=== PATIENT | female | born 1955 | race African-American/Black ===

== ENCOUNTER → 2024-08-12 | Day surgery (SDC) | payer OTHER | LOC: JRADUS-SUR 10:18 | PROVIDERS: ATTEND Family Medicine | PROC: 0HBU3ZX Excision of Left Breast, Percutaneous Approach, Diagnostic (ICD-10-PCS; principal; 2024-08-12) | DX: D18.09 Hemangioma of other sites (principal); N64.89 Other specified disorders of breast; N63.21 Unspecified lump in the left breast, upper outer quadrant | CPT/HCPCS: 19083; 76942-TC; 77065-TC; 77066-TC; 87899; 88305-TC; A4648; G0279-TC ==

== ENCOUNTER 2024-09-01 06:46 | Day surgery (SDC) | payer OTHER ==
[2024-08-20 15:02] VITALS: BMI 49.0
[2024-09-01 11:53] VITALS: RESP 18; TEMP 98
[2024-09-01 12:23] VITALS: BP 102/54; PULSE 75
== END 2024-09-01 12:30 | disposition home or self-care (01) ==
LOC: JASU-ENDO 06:46
PROVIDERS: ATTEND Internal Medicine Gastroenterology
PROC: 0DBH8ZX Excision of Cecum, Via Natural or Artificial Opening Endoscopic, Diagnostic (ICD-10-PCS; principal; 2024-09-01 11:00)
DX: Z12.11 Encounter for screening for malignant neoplasm of colon (principal); D12.0 Benign neoplasm of cecum; K63.89 Other specified diseases of intestine; K64.8 Other hemorrhoids
CPT/HCPCS: 88304-TC; 88305-TC

== ENCOUNTER 2024-09-23 10:44 | Day surgery (SDC) | payer OTHER ==
[2024-09-21 15:30] VITALS: BMI 43.7
[2024-09-23] MEDS ORDERED: LIDOCAINE 1%/EPI 1:100000 (20 ML MULTI DOSE VIAL) ONE (11:25)
[2024-09-23] MEDS ORDERED: BUPIVACAINE HCL/PF 2.5 MG/ML - 30 ML VIAL IJ ONE (11:26)
[2024-09-23] MEDS ORDERED: PROPOFOL 20 ML ONE ×2 (12:16→12:48)
[2024-09-23] MEDS ORDERED: SUCCINYLCHOLINE CHLORIDE 200 MG/10 ML SYRINGE ONE (12:16)
[2024-09-23] MEDS ORDERED: MIDAZOLAM HCL 2 MG/2 ML SINGLE DOSE VIAL ONE ×2 (12:17)
[2024-09-23] MEDS ORDERED: ACETAMINOPHEN INJECTION 100 ML ONE (13:07)
[2024-09-23] MEDS ORDERED: PROMETHAZINE HCL 25 MG/1 ML VIAL IVPB PRN (13:46)
[2024-09-23] MEDS ORDERED: oxyCODONE HCL 5 MG TABLET PO PRN ×2 (13:46)
[2024-09-23] MEDS ORDERED: ONDANSETRON 4 MG/2 ML VIAL IVPUSH PRN (13:46)
[2024-09-23] MEDS ORDERED: LACTATED RINGERS SOLUTION 1,000 ML IV SCH (14:00)
[2024-09-23 14:40] VITALS: TEMP 97.8
[2024-09-23 14:53] VITALS: RESP 19
[2024-09-23 14:55] VITALS: BP 114/67; PULSE 72
== END 2024-09-23 15:50 | disposition home or self-care (01) ==
LOC: FASU 10:44
PROVIDERS: ATTEND Surgery Surgical Oncology
PROC: 0HBU3ZX Excision of Left Breast, Percutaneous Approach, Diagnostic (ICD-10-PCS; 2024-09-23)
PROC: 0HBU0ZX Excision of Left Breast, Open Approach, Diagnostic (ICD-10-PCS; principal; 2024-09-23 12:44)
DX: N64.89 Other specified disorders of breast (principal); Z53.8 Procedure and treatment not carried out for other reasons
CPT/HCPCS: 94760; J0131